=== PATIENT | male | born 1970 | race Caucasian/White ===

== ENCOUNTER 2016-09-06 00:27 | Emergency (ER) | payer OTHER ==
[~2016-09-06] VITALS: Ht 188 cm; Wt 79.4 kg
--- NOTE | ~2016-09-06 | EKG ---
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 : 1970 Requested By: Gela Sol Order Number: [id number] MD: Jarrod Bowie Measurements Intervals [place] Rate: 91 P: 83 [place]: 127 QRS: 67 QRSD: 101 T: 69 QT: 393 QTc: 484 Interpretive Statements Sinus rhythm Probable left atrial enlargement Left ventricular hypertrophy Borderline prolonged QT interval No previous ECG available for comparison Electronically Signed On 09-07-2016 8:27:31 CDT by Jarrod Bowie [email or web address] <ELECTRONICALLY SIGNED> By: Jarrod Bowie MD, [facility] 09/07/16 0827 0121 0121 Jarrod Bowie MD, FACC /EPI
[~2016-09-06 00:27] MED LIST: ACCUNEB SO1.25 MG/1 INH; AMOXICILLIN 50500 M1 PO; DOXYCYCLINE 10100 MG PO; KEFLEX500 MG PO; MEDROLDOSEPACK PO; NOHOMEMEDICATIONS; NORCO 5-325 TA1 EACH PO; PREDNISONE 10 M10 MG PO; PREDNISONE 5 MG5 M1 PO; SINGULAIR 10 MG10 M1 PO; SYMBICORT80 MCG/4.1 INH; VENTOLIN HFA 1818 GM INH
[2016-09-06 00:53] VITALS: BP 140/78
[2016-09-06 01:12] LABS: ABSOLUTE NEUTROPHILS 7.3 thou/uL (1.4-8.2); BASOPHILS 0.5 % (0.0-2.0); EOSINOPHILS 2.5 % (0.0-3.0); HEMOGLOBIN 14.1 gm/dL (14.0-18.0); MANUAL DIFF NO; MCHC 34.4 g/dL (28.0-37.0); MCV 87.3 fL (80.0-100.0); MONOCYTES 11.3 % (1.0-8.0); PLATELET COUNT 233 thou/uL (150-400); POLYS 75.7 % (36.0-66.0); RDW 13.8 % (10.5-14.5); WBC 9.7 thou/uL (4.0-11.0)
[2016-09-06 01:18] LABS: ANION GAP 12 mmol/L (7-16); BUN 19 mg/dL (7-18); CALCIUM 9.2 mg/dL (8.5-10.1); CHLORIDE 101 mmol/L (98-107); CO2 24 mmol/L (21-32); GLUCOSE 123 mg/dL (74-106); POTASSIUM 3.2 mmol/L (3.5-5.1); SODIUM 137 mmol/L (136-145)
[2016-09-06 01:29] LABS: ALBUMIN 3.8 g/dL (3.4-5.0); ALKALINE PHOSPHATASE 69 U/L (46-116); NT-PRO BRAIN NAT PEPTIDE 242 pg/mL (<300); SGOT 15 U/L (15-37); TOTAL BILIRUBIN 1.4 mg/dL (<0.1-1.0); TOTAL PROTEIN 7.6 g/dL (6.4-8.2); TROPONIN-I < 0.04 ng/mL (<0.04-0.07)
[2016-09-06 01:38] LABS: SGPT 18 U/L (30-65)
[2016-09-06] MEDS ORDERED: AZITHROMYCIN 2250 MG PO (02:13)
[2016-09-06] MEDS ORDERED: VENTOLIN HFA 1818 GM INH (02:13)
[2016-09-06] MEDS ORDERED: PREDNISONE 20 M20 MG PO (02:13)
== END 2016-09-06 02:30 | disposition home or self-care (01) ==
LOC: ER 00:27
PROVIDERS: Emergency Medicine
DX: J45.901 Unspecified asthma with (acute) exacerbation (principal); J18.9 Pneumonia, unspecified organism; F17.210 Nicotine dependence, cigarettes, uncomplicated; Z88.2 Allergy status to sulfonamides; Z87.891 Personal history of nicotine dependence

== ENCOUNTER 2016-10-26 17:51 | Emergency (ER) | payer OTHER ==
[~2016-10-26] VITALS: Ht 188 cm; Wt 79.4 kg
[~2016-10-26 17:51] MED LIST changes: +AZITHROMYCIN 2250 MG PO; +BENADRYL25 MG PO; +PREDNISONE 20 M20 MG PO
[2016-10-26] MEDS ORDERED: VENTOLIN HFA 1818 GM INH (18:51)
[2016-10-26] MEDS ORDERED: PREDNISONE 20 M20 MG PO (18:51)
[2016-10-26] MEDS ORDERED: ACCUNEB SO1.25 MG/1 INH (19:10)
[2016-10-26] MEDS ORDERED: NEBULIZER MISCELL (19:10)
[2016-10-26 19:28] VITALS: BP 119/75
== END 2016-10-26 19:39 | disposition home or self-care (01) ==
LOC: ER 17:51
DX: J45.901 Unspecified asthma with (acute) exacerbation (principal); Z87.891 Personal history of nicotine dependence; Z88.2 Allergy status to sulfonamides

== ENCOUNTER 2017-09-02 20:02 | Emergency (ER) | payer OTHER ==
[~2017-09-02] VITALS: Ht 188 cm; Wt 79.4 kg
--- NOTE | ~2017-09-02 | EKG ---
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[facility] [place] 1970 Requested By: Nolan Araiza Order Number: [id number] MD: Jarrod Bowie Measurements Intervals [place] Rate: 76 P: 89 [place]: 142 QRS: 70 QRSD: 89 T: 64 QT: 398 QTc: 448 Interpretive Statements Sinus rhythm No significant abnormality Compared to ECG 11/21/2016 23:10:20 Left ventricular hypertrophy no longer present Electronically Signed On 09-03-2017 8:25:15 CDT by Jarrod Bowie [email or web address] <ELECTRONICALLY SIGNED> By: Jarrod Bowie MD, [facility] 09/03/17 0825 2034 33 Jarrod Bowie MD, FACC /EPI
[~2017-09-02 20:02] MED LIST changes: +IPRATROPIU0.2 MG/1 M IH; +NEBULIZER MISCELL
[2017-09-02 20:46] LABS: ABSOLUTE NEUTROPHILS 5.8 thou/uL (1.4-8.2); BASOPHILS 1.7 % (0.0-2.0); EOSINOPHILS 4.3 % (0.0-3.0); HEMATOCRIT 42.8 % (42.0-52.0); HEMOGLOBIN 14.5 gm/dL (14.0-18.0); MCHC 33.8 g/dL (28.0-37.0); MCV 88.8 fL (80.0-100.0); MONOCYTES 6.7 % (1.0-8.0); PLATELET COUNT 279 thou/uL (150-400); POLYS 70.3 % (36.0-66.0); RBC 4.82 mil/uL (4.50-6.00); RDW 14.1 % (10.5-14.5); WBC 8.2 thou/uL (4.0-11.0)
[2017-09-02 20:50] LABS: ANION GAP 8 mmol/L (7-16); BUN 14 mg/dL (7-18); CALCIUM 9.1 mg/dL (8.5-10.1); CHLORIDE 104 mmol/L (98-107); CO2 27 mmol/L (21-32); CREATININE 1.1 mg/dL (0.7-1.3); GLUCOSE 138 mg/dL (74-106); POTASSIUM 3.8 mmol/L (3.5-5.1); SODIUM 139 mmol/L (136-145)
[2017-09-02 20:58] LABS: ALBUMIN 3.8 g/dL (3.4-5.0); MAGNESIUM 1.7 mg/dL (1.8-2.4); SGOT 21 U/L (15-37); SGPT 20 U/L (30-65); TOTAL BILIRUBIN 1.4 mg/dL (<0.1-1.0); TROPONIN-I < 0.04 ng/mL (<0.06)
[2017-09-02] MEDS ORDERED: PREDNISONE 20 M20 MG PO (21:55)
[2017-09-02] MEDS ORDERED: VENTOLIN HFA 1818 GM INH (21:55)
[2017-09-02 22:10] VITALS: BP 112/68
== END 2017-09-02 22:15 | disposition home or self-care (01) ==
LOC: ER 20:02
PROVIDERS: Emergency Medicine
DX: J45.901 Unspecified asthma with (acute) exacerbation (principal); Z87.891 Personal history of nicotine dependence; Z88.2 Allergy status to sulfonamides

== ENCOUNTER 2017-10-17 00:41 | Emergency (ER) | payer OTHER ==
[~2017-10-17] VITALS: Ht 188 cm; Wt 79.4 kg
--- NOTE | ~2017-10-17 | EKG ---
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
[2017-10-17 01:40] LABS: ABSOLUTE NEUTROPHILS 4.6 thou/uL (1.4-8.2); BASOPHILS 2.3 % (0.0-2.0); EOSINOPHILS 14.1 % (0.0-3.0); HEMATOCRIT 39.4 % (42.0-52.0); HEMOGLOBIN 13.6 gm/dL (14.0-18.0); LYMPHOCYTES 18.5 % (24.0-44.0); MCH 30.6 pg (26.0-34.0); MCHC 34.5 g/dL (28.0-37.0); MCV 88.5 fL (80.0-100.0); MONOCYTES 7.9 % (1.0-8.0); PLATELET COUNT 268 thou/uL (150-400); POLYS 57.2 % (36.0-66.0); RBC 4.45 mil/uL (4.50-6.00); RDW 13.7 % (10.5-14.5); WBC 8.1 thou/uL (4.0-11.0)
[2017-10-17 01:41] LABS: CALCIUM 8.7 mg/dL (8.5-10.1); POTASSIUM 3.1 mmol/L (3.5-5.1)
[2017-10-17 01:47] LABS: ALBUMIN 3.9 g/dL (3.4-5.0); TOTAL BILIRUBIN 1.6 mg/dL (<0.1-1.0); TOTAL PROTEIN 6.8 g/dL (6.4-8.2)
[2017-10-17] MEDS ORDERED: PREDNISONE 20 M20 MG PO (03:13)
[2017-10-17] MEDS ORDERED: PROAIR HFA8.5 GM INH (03:13)
[2017-10-17 03:47] VITALS: BP 134/83
== END 2017-10-17 03:40 | disposition home or self-care (01) ==
LOC: ER 00:41
PROVIDERS: Emergency Medicine
DX: J45.901 Unspecified asthma with (acute) exacerbation (principal); Z87.891 Personal history of nicotine dependence; Z88.2 Allergy status to sulfonamides

== ENCOUNTER 2017-11-10 22:01 | Emergency (ER) | payer OTHER ==
[~2017-11-10] VITALS: Ht 188 cm; Wt 79.4 kg
[~2017-11-10 22:01] MED LIST changes: +PROAIR HFA8.5 GM INH
[2017-11-10 23:28] LABS: ABSOLUTE NEUTROPHILS 7.8 thou/uL (1.4-8.2); BASOPHILS 1.2 % (0.0-2.0); EOSINOPHILS 12.1 % (0.0-3.0); HEMATOCRIT 42.6 % (42.0-52.0); HEMOGLOBIN 14.6 gm/dL (14.0-18.0); LYMPHOCYTES 12.4 % (24.0-44.0); MCH 30.3 pg (26.0-34.0); MCHC 34.2 g/dL (28.0-37.0); MCV 88.8 fL (80.0-100.0); MONOCYTES 6.9 % (1.0-8.0); PLATELET COUNT 287 thou/uL (150-400); POLYS 67.4 % (36.0-66.0); RDW 13.7 % (10.5-14.5); WBC 11.6 thou/uL (4.0-11.0)
[2017-11-10 23:38] LABS: CALCIUM 9.1 mg/dL (8.5-10.1); CREATININE 0.9 mg/dL (0.7-1.3); POTASSIUM 3.8 mmol/L (3.5-5.1)
[2017-11-11] MEDS ORDERED: VENTOLIN HFA 1818 GM INH (00:55)
[2017-11-11] MEDS ORDERED: ALBUTEROL2.5 MG/31 INH (00:55)
[2017-11-11] MEDS ORDERED: PREDNISONE 20 M20 MG PO (00:55)
[2017-11-11] MEDS ORDERED: IPRATROPIU0.2 MG/1 M INH (00:55)
[2017-11-11 01:11] VITALS: BP 128/79
== END 2017-11-11 01:13 | disposition home or self-care (01) ==
LOC: ER 22:01
PROVIDERS: Emergency Medicine
DX: J45.901 Unspecified asthma with (acute) exacerbation (principal); Z87.891 Personal history of nicotine dependence; Z88.2 Allergy status to sulfonamides

== ENCOUNTER 2018-02-21 09:27 | Emergency (ER) | payer OTHER ==
[~2018-02-21] VITALS: Ht 188 cm; Wt 79.4 kg
[~2018-02-21 09:27] MED LIST changes: +ALBUTEROL2.5 MG/31 INH; +IPRATROPIU0.2 MG/1 M INH
[2018-02-21] MEDS ORDERED: FLOVENT HFA 4444 MCG INH (10:47)
[2018-02-21] MEDS ORDERED: PREDNISONE 20 M20 MG PO (10:47)
[2018-02-21] MEDS ORDERED: PROAIR HFA8.5 GM INH (10:47)
[2018-02-21 10:55] VITALS: BP 106/67
== END 2018-02-21 11:08 | disposition home or self-care (01) ==
LOC: ER 09:27
DX: J45.901 Unspecified asthma with (acute) exacerbation (principal); Z87.891 Personal history of nicotine dependence; Z88.2 Allergy status to sulfonamides

== ENCOUNTER 2018-03-12 23:04 | Inpatient (IN) | payer OTHER ==
[~2018-03-12] VITALS: Ht 188 cm; Wt 75.7 kg
--- NOTE | ~2018-03-12 | EKG ---
[address] [address] ELECTROCARDIOGRAM REPORT Name: ARVIZUSHUBHAM HELEN Room #: 455-P ADM IN M.R.#: [id number] Admission: 03/13/18 Attend Phys: Nikolay Lynne MD Discharge: Date of : 74 Report #: [id number] THIS REPORT FOR: //name// 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
[~2018-03-12 23:04] MED LIST changes: +FLOVENT HFA 4444 MCG INH
[2018-03-12 23:07] VITALS: BP 137/90
[2018-03-13] VITALS (7 sets, daily range): BP systolic 100–121; BP diastolic 61–81
[2018-03-13 00:24] LABS: ABSOLUTE NEUTROPHILS 9.1 thou/uL (1.4-8.2); EOSINOPHILS 7.6 % (0.0-3.0); HEMOGLOBIN 14.7 gm/dL (14.0-18.0); LYMPHOCYTES 9.9 % (24.0-44.0); MCH 30.1 pg (26.0-34.0); MCHC 34.3 g/dL (28.0-37.0); MCV 87.8 fL (80.0-100.0); MONOCYTES 6.5 % (1.0-8.0); PLATELET COUNT 247 thou/uL (150-400); RBC 4.89 mil/uL (4.50-6.00)
[2018-03-13 00:29] LABS: ANION GAP 10 mmol/L (7-16); BUN 14 mg/dL (7-18); CALCIUM 9.5 mg/dL (8.5-10.1); CHLORIDE 102 mmol/L (98-107); CO2 28 mmol/L (21-32); CREATININE 0.9 mg/dL (0.7-1.3); GLUCOSE 116 mg/dL (74-106); POTASSIUM 3.7 mmol/L (3.5-5.1); SODIUM 140 mmol/L (136-145)
[2018-03-13 00:38] LABS: ALBUMIN 3.8 g/dL (3.4-5.0); MAGNESIUM 1.8 mg/dL (1.8-2.4); SGOT 14 U/L (15-37); SGPT 22 U/L (30-65); TOTAL BILIRUBIN 1.4 mg/dL (<0.1-1.0); TOTAL PROTEIN 7.5 g/dL (6.4-8.2); TROPONIN-I <0.06 ng/mL (<0.06)
[2018-03-14 04:08] VITALS: BP 121/81
[2018-03-14 08:00] VITALS: BP 103/63
[2018-03-14] MEDS ORDERED: PREDNISONE 10 M10 MG PO (08:56)
[2018-03-14] MEDS ORDERED: SINGULAIR 10 MG10 M1 PO (08:56)
[2018-03-14 15:00] VITALS: BP 119/56
[2018-03-14 16:07] VITALS: BP 103/63
== END 2018-03-14 18:15 | disposition home or self-care (01) | DRG 189 ==
LOC: ER 23:04 → EROBS 03-13 00:21 → 4W 03-13 00:21
PROVIDERS: Emergency Medicine
DX: J96.21 Acute and chronic respiratory failure with hypoxia (principal); J45.901 Unspecified asthma with (acute) exacerbation; Z87.891 Personal history of nicotine dependence; Z87.828 Personal history of other (healed) physical injury and trauma; Z87.81 Personal history of (healed) traumatic fracture; Z99.81 Dependence on supplemental oxygen; Z79.899 Other long term (current) drug therapy; Z88.2 Allergy status to sulfonamides; Z82.49 Family history of ischemic heart disease and other diseases of the circulatory system; Z80.8 Family history of malignant neoplasm of other organs or systems; Z82.5 Family history of asthma and other chronic lower respiratory diseases; Z23 Encounter for immunization
CPT/HCPCS: 10045

== ENCOUNTER 2018-05-08 07:58 | Inpatient (IN) | payer OTHER ==
[~2018-05-08] VITALS: Ht 188 cm; Wt 76.7 kg
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
[2018-05-08 08:04] VITALS: BP 133/83
[2018-05-08 08:37] LABS: ABSOLUTE NEUTROPHILS 5.1 thou/uL (1.4-8.2); BASOPHILS 0.9 % (0.0-2.0); EOSINOPHILS 15.8 % (0.0-3.0); HEMATOCRIT 42.8 % (42.0-52.0); HEMOGLOBIN 14.7 gm/dL (14.0-18.0); LYMPHOCYTES 14.5 % (24.0-44.0); MCH 30.4 pg (26.0-34.0); MCHC 34.4 g/dL (28.0-37.0); MCV 88.4 fL (80.0-100.0); MONOCYTES 6.7 % (1.0-8.0); PLATELET COUNT 280 thou/uL (150-400); POLYS 62.1 % (36.0-66.0); RBC 4.84 mil/uL (4.50-6.00); RDW 14.1 % (10.5-14.5); WBC 8.2 thou/uL (4.0-11.0)
[2018-05-08 08:45] LABS: CALCIUM 9.1 mg/dL (8.5-10.1); CREATININE 0.9 mg/dL (0.7-1.3); POTASSIUM 3.8 mmol/L (3.5-5.1)
[2018-05-08 11:09] VITALS: BP 111/74
[2018-05-08 11:40] VITALS: BP 114/54
[2018-05-08 19:20] VITALS: BP 126/62
[2018-05-09 03:10] VITALS: BP 109/61
[2018-05-09 04:13] LABS: CREATININE 0.7 mg/dL (0.7-1.3)
[2018-05-09 04:43] LABS: HEMATOCRIT 39.8 % (42.0-52.0); HEMOGLOBIN 13.5 gm/dL (14.0-18.0); MCH 29.8 pg (26.0-34.0); MCHC 33.9 g/dL (28.0-37.0); MCV 87.9 fL (80.0-100.0); RBC 4.52 mil/uL (4.50-6.00); WBC 9.9 thou/uL (4.0-11.0)
[2018-05-09 10:13] VITALS: BP 125/68
[2018-05-09] MEDS ORDERED: FLOVENT HFA 4444 MCG INH (12:45)
[2018-05-09] MEDS ORDERED: AZITHROMYCIN 2250 MG PO (12:45)
[2018-05-09] MEDS ORDERED: VENTOLIN HFA 1818 GM INH (12:45)
[2018-05-09] MEDS ORDERED: PREDNISONE 10 M10 MG PO (12:45)
[2018-05-09] MEDS ORDERED: ALBUTEROL2.5 MG/31 INH (12:45)
[2018-05-09 13:24] VITALS: BP 125/68
[2018-05-09] MEDS ORDERED: SYMBICORT160 MCG/4. INH (15:27)
[2018-05-10] MEDS ORDERED: VENTOLIN HFA 1818 GM INH (10:19)
== END 2018-05-09 16:05 | disposition home or self-care (01) | DRG 202 ==
LOC: ER 07:58 → EROBS 10:59 → 4W 11:54
PROVIDERS: Emergency Medicine; Hospitalist
DX: J45.901 Unspecified asthma with (acute) exacerbation (principal); J96.91 Respiratory failure, unspecified with hypoxia; D72.1 Eosinophilia; Z79.899 Other long term (current) drug therapy; Z87.891 Personal history of nicotine dependence; Z88.2 Allergy status to sulfonamides; Z82.49 Family history of ischemic heart disease and other diseases of the circulatory system; Z83.6 Family history of other diseases of the respiratory system
CPT/HCPCS: 10045

== ENCOUNTER 2018-05-10 10:13 | Emergency (ER) | payer OTHER ==
[~2018-05-10] VITALS: Ht 188 cm; Wt 79.4 kg
[~2018-05-10 10:13] MED LIST changes: +SYMBICORT160 MCG/4. INH
[2018-05-10 10:14] VITALS: BP 118/78
[2018-05-10] MEDS ORDERED: VENTOLIN HFA 1818 GM INH (10:19)
== END 2018-05-10 10:36 | disposition home or self-care (01) ==
LOC: ER 10:13
DX: Z76.0 Encounter for issue of repeat prescription (principal); J45.909 Unspecified asthma, uncomplicated; Z87.891 Personal history of nicotine dependence; Z88.2 Allergy status to sulfonamides